=== PATIENT | male | born 1960 | race African-American/Black ===

== ENCOUNTER 2019-08-03 19:02 | Emergency (ER) | payer OTHER, SELFPAY ==
[2019-08-03] MEDS ORDERED: Acetaminophen 500 MG TAB ONE (19:19)
[2019-08-03] MEDS ORDERED: Azithromycin 250 MG TAB ONE (19:50)
--- NOTE | 2019-08-04 07:12 | RAD ---
CHEST 2 VIEWS: Date: 08/03/2019 Comparison made with the 11/07/2010 study. There is the interval appearance of a faint streaky infiltrate in the right costophrenic angle. Pneum onia is presumed. The lungs are otherwise clear. There are no effusions. The heart size is normal. IMPRESSION: Right basilar pneumonia. Findings discussed with Dr. Ferrell at 1948 hours on 08/03/2019. CODE CR. POS: HOME
[2019-08-05 15:30] LABS: SARS-CoV-2 MS2 Positive; SARS-CoV-2 N Gene Positive; SARS-CoV-2 S Gene Positive; SARS-CoV-2 orf1ab Positive
== END 2019-08-03 20:00 | disposition home or self-care (01) ==
LOC: BURERS 19:02
DX: U07.1 COVID-19 (principal); J12.89 Other viral pneumonia; J45.909 Unspecified asthma, uncomplicated; Z79.899 Other long term (current) drug therapy
CPT/HCPCS: 71046; 87635; U0003